=== PATIENT | male | born 1960 | race Caucasian/White ===

== ENCOUNTER → 2016-08-19 | Outpatient (CLI) | payer BC ==
[~2016-08-19] MED LIST: ALPR0.25 PO; ALPR0.5T3 PO; INSP25TA PO; LIDO2GEL8 EXT; METO-346 PO; POTA10PO PO; POTA1TAB14 PO; SALI0.653; VITA500055 PO
[2016-08-19 09:44] LABS: ANION GAP 8 MEQ/L (8-16); BLOOD UREA NITROGEN 19 MG/DL (7-18); CALCIUM LEVEL 8.8 MG/DL (8.5-10.1); CARBON DIOXIDE LEVEL 31 MEQ/L (21-32); CHLORIDE LEVEL 104 MEQ/L (98-107); CREATININE FOR GFR 1.04 MG/DL (0.70-1.30); GLOMERULAR FILTRATION RATE > 60.0 (>56); GLUCOSE, FASTING 93 MG/DL (70-105); MAGNESIUM LEVEL 2.2 MG/DL (1.8-2.4); POTASSIUM SERUM 4.4 MEQ/L (3.5-5.1); SODIUM LEVEL 143 MEQ/L (136-145)
--- NOTE | 2016-08-19 10:53 | REP ---
ULTRASOUND ABDOMEN: Real-time sonographic evaluation of the abdomen performed. The gallbladder demonstrates no evidence of intraluminal sludge or calculi, wall thickening or pericholecystic fluid. There is no intrahepatic or extrahepatic biliary dilatation, the common bile duct measuring 4 mm in diameter. A cyst in the right lobe of the liver measures 1.3 x 1.0 x 1.4 cm. The visualized pancreas is grossly unremarkable but not optimally seen due to overlying bowel gas. Spleen is mildly enlarged measuring 13.8 cm in length with no intrinsic abnormality. Kidneys are normal in size and echotexture, right kidney measuring 12.7 x 6.5 x 5.9 cm and left kidney 12.8 x 5.6 x 5.6 cm. There is an 8 mm cyst in the upper pole of the right kidney. Abdominal aorta is normal in caliber with maximum AP diameter approximately 2.5 cm, mid aspect 1.7 cm and distally 2.1 cm. No ascites is seen. IMPRESSION: Small cyst right lobe of the liver. Small cyst right kidney. Mild splenomegaly. Otherwise unremarkable. Signed by Ward Bautista MD 08/20/2016 04:35 P
== END ==
LOC: M LAB 08:40
PROVIDERS: ATTEND Internal Medicine Nephrology
DX: E87.6 Hypokalemia (principal); K76.89 Other specified diseases of liver

== ENCOUNTER → 2016-10-02 | Outpatient (REF) | payer BC | LOC: M LAB REF 16:32 | PROVIDERS: ATTEND Physician Assistant | DX: J02.9 Acute pharyngitis, unspecified (principal) ==

== ENCOUNTER → 2016-12-09 | Outpatient (CLI) | payer BC ==
[2016-12-09 10:48] LABS: ANION GAP 7 MEQ/L (8-16); BLOOD UREA NITROGEN 13 MG/DL (7-18); CALCIUM LEVEL 8.6 MG/DL (8.5-10.1); CARBON DIOXIDE LEVEL 28 MEQ/L (21-32); CHLORIDE LEVEL 101 MEQ/L (98-107); CREATININE FOR GFR 0.88 MG/DL (0.70-1.30); GLOMERULAR FILTRATION RATE > 60.0 (>56); GLUCOSE, FASTING 87 MG/DL (70-105); MAGNESIUM LEVEL 2.1 MG/DL (1.8-2.4); POTASSIUM SERUM 4.3 MEQ/L (3.5-5.1); SODIUM LEVEL 136 MEQ/L (136-145)
== END ==
LOC: M LAB 09:51
PROVIDERS: ATTEND Internal Medicine Nephrology
DX: E87.6 Hypokalemia (principal)

== ENCOUNTER → 2017-01-11 | Outpatient (CLI) | payer BC ==
[~2017-01-11] MED LIST changes: +LIDO2GEL5 EXT; -LIDO2GEL8 EXT; +SALI0.6523; -SALI0.653
[2017-01-11 13:17] LABS: ANION GAP 6 MEQ/L (8-16); BLOOD UREA NITROGEN 17 MG/DL (7-18); CALCIUM LEVEL 9.3 MG/DL (8.5-10.1); CARBON DIOXIDE LEVEL 31 MEQ/L (21-32); CHLORIDE LEVEL 101 MEQ/L (98-107); CREATININE FOR GFR 0.97 MG/DL (0.70-1.30); GLOMERULAR FILTRATION RATE > 60.0 (>56); GLUCOSE, FASTING 83 MG/DL (70-105); MAGNESIUM LEVEL 2.2 MG/DL (1.8-2.4); POTASSIUM SERUM 4.2 MEQ/L (3.5-5.1); SODIUM LEVEL 138 MEQ/L (136-145)
== END ==
LOC: M LAB 11:39
PROVIDERS: ATTEND Internal Medicine Nephrology
DX: E26.09 Other primary hyperaldosteronism (principal); I42.2 Other hypertrophic cardiomyopathy; Q44.6 Cystic disease of liver

== ENCOUNTER → 2017-03-31 | Outpatient (CLI) | payer BC ==
[2017-03-31 21:37] LABS: THYROXINE (T4) 8.4 UG/DL (4.5-12.0)
== END ==
LOC: M LAB 17:51
PROVIDERS: ATTEND Family Medicine
DX: R53.83 Other fatigue (principal)

== ENCOUNTER → 2020-03-09 | Outpatient (REF) | payer BC ==
[~2020-03-09] MED LIST changes: -SALI0.6523; +SALI0.6528
== END ==
LOC: M LAB REF 09:22
PROVIDERS: ATTEND Physician Assistant Medical
DX: Z20.828 Contact with and (suspected) exposure to other viral communicable diseases (principal)

== ENCOUNTER → 2021-11-19 | Outpatient (CLI) | payer BC | LOC: M RAD 10:32 | PROVIDERS: ATTEND Internal Medicine | DX: R10.11 Right upper quadrant pain (principal) ==

== ENCOUNTER → 2023-04-14 | Outpatient (CLI) | payer BC ==
[~2023-04-14] MED LIST changes: +POTA-298 PO; -POTA1TAB14 PO
== END ==
LOC: M RAD 09:35
PROVIDERS: ATTEND Internal Medicine
DX: R10.11 Right upper quadrant pain (principal)